=== PATIENT | male | born 1960 | race Caucasian/White ===

== ENCOUNTER 2020-06-29 17:43 | Emergency (ER) | payer MEDICAID ==
[~2020-06-29] VITALS: Ht 177.8 cm; Wt 72.6 kg
[2020-06-29] MEDS ORDERED: diphenhdrAMINE HCL 50 MG/1 ML VL IM ONE (18:00)
[2020-06-29] MEDS ORDERED: LORazepam 2MG/ML-1ML VIAL IM ONE (18:00)
[2020-06-29] MEDS ORDERED: HALOPERIDOL LACTATE 5 MG/ML INJ VIAL IM ONE (18:00)
[2020-06-29 19:10] LABS: Basophils # (auto) 0.1 10 ^3/uL (0-0.2); Eosinophils # (auto) 0 10 ^3/uL (0-0.8); Eosinophils % (auto) 0.6 % (0.0-7.0); Hematocrit 50.5 % (41.0-53.0); Hemoglobin 16.5 g/dL (13.5-17.5); Lymphocytes # (auto) 2.1 10 ^3/uL (0.4-5.4); Lymphocytes % (auto) 24.5 % (10.0-50.0); Mean Corpuscular Hgb Conc. 32.6 g/dL (32.0-36.0); Mean Corpuscular Volume 97.9 fL (80.0-100.0); Monocytes # (auto) 0.5 10 ^3/uL (0-1.3); Monocytes % (auto) 5.7 % (0.0-12.0); Neutrophils # (auto) 5.8 10 ^3/uL (1.6-8.6); Neutrophils % (auto) 68.2 % (37.0-80.0); Nucleated Red Blood Cells % 0.1 %; Platelet Count (auto) 298 10^3/uL (140-450); Red Blood Cells 5.15 10^6/uL (4.5-5.90); Red Cell Distribution Width 14.1 % (11.8-14.3); White Blood Cell 8.4 10^3/uL (4.4-10.8)
[2020-06-29 19:24] LABS: Albumin 4.4 g/dL (3.4-5.0); Anion Gap 5 (5-15); Blood Urea Nitrogen 12 mg/dL (7-18); Calcium 9.2 mg/dL (8.5-10.1); Carbon Dioxide 22 mmol/L (21-32); Chloride 111 mmol/L (98-107); Glucose 104 mg/dL (74-106); Magnesium 2.5 mg/dL (1.6-2.6); Potassium 3.4 mmol/L (3.5-5.1); Sodium 138 mmol/L (136-145)
[2020-06-29 19:27] LABS: INR 1.01 (0.9-1.15); Partial Thromboplastin Time 26.2 sec (23.0-31.2)
[2020-06-29 19:31] LABS: Alanine Aminotransferase 34 U/L (16-61); Alkaline Phosphatase 62 U/L (45-117); Aspartate Aminotransferase 13 U/L (15-37); BUN/Creatinine Ratio 12.1; Bilirubin, Total 0.5 mg/dL (0.2-1.0); GFR African American 100 mL/min; GFR Non-African American 82 mL/min; Total Protein 7.7 g/dL (6.4-8.2)
[2020-06-29 21:22] LABS: Urine Bacteria NONE SEEN /hpf (None Seen); Urine Blood Negative /uL (Negative); Urine Specific Gravity 1.009 (1.001-1.035); Urine WBC 1 /hpf (0 - 3)
[2020-06-29 21:35] LABS: Alcohol, Urine < 3.0 mg/dL (0-10); Amphetamine Screen, Urine NEGATIVE (NEGATIVE); Barbiturate Scree,Urine NEGATIVE (NEGATIVE); Benzodiazephine Screen, Urine NEGATIVE (NEGATIVE); Cannabinoid Screen, Urine POSITIVE (NEGATIVE); Cocaine Screen, Urine NEGATIVE (NEGATIVE); Opiate Scree,Urine NEGATIVE (NEGATIVE); Phencyclidine Screen, Urine NEGATIVE (NEGATIVE)
[2020-06-30] MEDS ORDERED: ONDANSETRON HCL 4 MG/2 ML VIAL IV ONE (06:30)
[2020-06-30] MEDS ORDERED: MORPHINE SULFATE 4 MG/ML SYR/VIAL IV ONE (06:30)
[2020-06-30 06:40] VITALS: BP 112/56
== END 2020-06-30 07:20 | disposition short-term general hospital (02) ==
LOC: ER 17:43 → EDBD 17:43 → ER 06-30 07:20
DX: R55 Syncope and collapse (principal); G43.909 Migraine, unspecified, not intractable, without status migrainosus; E78.5 Hyperlipidemia, unspecified; I10 Essential (primary) hypertension; Z20.828 Contact with and (suspected) exposure to other viral communicable diseases
CPT/HCPCS: 36415; 70450; 71045; 80053; 80307; 80320; 81001; 83735; 83880; 84443; 84484; 85025; 85379; 85610; 85730; 87426; 96374; 96375; 99285; C9803; J2270; J2405; U0003